=== PATIENT | female | born 1970 | race Caucasian/White ===

== ENCOUNTER 2016-07-06 11:43 | Emergency (ER) | payer OTHER ==
--- NOTE | 2016-07-06 12:12 | RAD ---
History: Cough. Comparison: None. Technique: 2 views Findings: The soft tissue and bony structures are appropriate. The heart size is within expected. There is evidence of silhouetting of the left diaphragmatic contour with increased left basilar density. No effusion or pneumothorax is seen. The hilar and mediastinal structures are intact. Impression: 1. A left lower lobe infiltrate.
[2016-07-06] MEDS ORDERED: IBUPROFEN 600 MG TABLET ONE (14:09)
[2016-07-06] MEDS ORDERED: DOXYCYCLINE HYCLATE 100 MG TABLET ONE (14:09)
[2016-07-06] MEDS ORDERED: DEXAMETHASONE 4 MG TABLET ONE (14:09)
== END 2016-07-06 14:41 | disposition home or self-care (01) ==
LOC: ED 11:43
DX: J18.9 Pneumonia, unspecified organism (principal); Z87.891 Personal history of nicotine dependence
CPT/HCPCS: 71020; 87804; 99283 ×2; A9270 ×3